=== PATIENT | male | born 1995 | race Caucasian/White ===

== ENCOUNTER 2017-01-04 12:49 | Emergency (ER) | payer OTHER ==
--- NOTE | 2017-01-22 08:17 | ER ---
ADMIT: 01/04/2017 RM/LOC: ER [facility] MR#: [id number] [address] [id number] [facility] [address] [place] [id number] Emergency Room Report SEX: M AGE: 21 : 1995 DATE: 01/04/2017 ADDENDUM: This is a 21-year-old, obese male coming to the ER because he has pain in his left wrist and also his caodaism. Four days ago, he was carrying a very heavy speaker which he felt his wrist pop and the speaker came down in his caodaism. He complains more of wrist pain but states he feels like his vision is blurry today. On physical exam, I see no area of contusions around his forehead or caodaism area. No swelling. He does have some swelling in his wrist. X-ray of the wrist was negative. During his stay, he complained of his biggest concern was he just did not feel right after hitting his head. We did do a CAT scan of his head which was normal. He was given ibuprofen 800 in the ER. He was placed in a cock-up wrist splint. DIAGNOSES: 1. Left wrist sprain. 2. Scalp contusion. I reassured him of the CAT scan. We will have him follow up with his primary as needed. Please see my T-sheet. ZAK Kothari / Richard Kendall MD / otis JOB #: [id number] CC: Richard Kendall MD, Attending Physician Koby Kraft MD, Family Physician
== END 2017-01-04 15:27 | disposition home or self-care (01) ==
LOC: ER 12:49
PROC: 2W3FX1Z Immobilization of Left Hand using Splint (ICD-10-PCS; principal; 2017-01-04)
DX: S63.502A Unspecified sprain of left wrist, initial encounter (principal); S00.03XA Contusion of scalp, initial encounter; X50.0XXA Overexertion from strenuous movement or load, initial encounter; Y92.9 Unspecified place or not applicable

== ENCOUNTER → 2017-01-28 | Outpatient (CLI) | payer OTHER | END | disposition home or self-care (01) | LOC: RAD.S 13:00 | DX: M79.642 Pain in left hand (principal); M25.532 Pain in left wrist; M25.842 Other specified joint disorders, left hand; M25.832 Other specified joint disorders, left wrist ==